=== PATIENT | female | born 1995 | race Caucasian/White ===

== ENCOUNTER 2017-10-23 16:46 | Emergency (ER) | payer BC ==
[2017-10-23 17:19] VITALS: TEMP 97.1
[2017-10-23] MEDS ORDERED: predniSONE 50 MG TAB PO STA (17:45)
[2017-10-23] MEDS ORDERED: IPRATROPIUM-ALBUTEROL 3 ML NEB INHALATION STA (17:45)
--- NOTE | 2017-10-23 17:48 | ED ---
SOB HPI - General Chief Complaint: Shortness of Breath Stated Complaint: Diff Breathing, Asthma Issues Time Seen by Provider: 10/23/17 17:40 Source: patient Mode of arrival: ambulatory Limitations: no limitations - History of Present Illness Initial Comments: 22-year-old male patient with past medical history significant for asthma presents to the emergency department today for complaints of increased shortness of breath and asthma issues. She states that over the last 3-4 days she has had an increase in her asthma symptoms. States she has been doing her breathing treatments at home which are albuterol, states that he does in be helping much. She states that she did 2 treatments before she left home today, went to work, and started having trouble at work so she presented here for further evaluation. She says her symptoms started with upper respiratory symptoms including nasal congestion, sore throat, and cough, states that these symptoms are struck to her asthma to get worse. She states that she recently moved to the area and has not yet established with a physician in order to get her maintenance asthma medications. Patient denies any recent rash, chest pain , abdominal pain, nausea, vomiting, diarrhea, constipation, back pain, numbness , tingling, dizziness, weakness, hematuria, dysuria, urinary urgency, urinary frequency, headache, visual changes, or any other complaints. - Related Data Previous Rx's Medication Instructions Recorded Albuterol Sulfate [Proair Hfa] 1 - 2 puff INHALATION Q6HR PRN #1 10/23/17 inhaler Ipratropium-Albuterol Nebulize 3 ml INHALATION Q4H PRN #30 neb 10/23/17 [Duoneb 0.5 mg-3 mg/3 ml Soln] predniSONE 50 mg PO DAILY #5 tab 10/23/17 Allergies Allergy/AdvReac Type Severity Reaction Status Date / Time latex Allergy Rash/Hives Verified 10/23/17 18:00 Sulfa (Sulfonamide Allergy Swelling Verified 10/23/17 18:00 Antibiotics) Review of Systems ROS Statement: Those systems with pertinent positive or pertinent negative responses have been documented in the HPI. ROS Other: All systems not noted in ROS Statement are negative. Past Medical History Past Medical History: Asthma History of Any Multi-Drug Resistant Organisms: None Reported Past Surgical History: No Surgical Hx Reported Past Psychological History: No Psychological Hx Reported Smoking Status: Never smoker Past Alcohol Use History: Occasional Past Drug Use History: None Reported General Exam Limitations: no limitations General appearance: alert, in no apparent distress, other (This is a well- developed, well-nourished adult female patient in no acute distress. Vital signs upon presentation are temperature 97.1F, pulse 93, respirations 22, blood pressure 170/92, pulse ox 100% on room air.) Eye exam: Present: normal appearance, PERRL, EOMI. Absent: scleral icterus, conjunctival injection, periorbital swelling ENT exam: Present: normal exam, normal oropharynx, mucous membranes moist, TM's normal bilaterally Neck exam: Present: normal inspection. Absent: tenderness, meningismus, lymphadenopathy Respiratory exam: Present: normal lung sounds bilaterally, other (appears mildly short of breath, takes deep breaths between sentences. No nasal flaring, pursed lip breathing, or accessory muscle use. ). Absent: respiratory distress , wheezes, rales, rhonchi, stridor Cardiovascular Exam: Present: regular rate, normal rhythm, normal heart sounds. Absent: systolic murmur, diastolic murmur, rubs, gallop, clicks GI/Abdominal exam: Present: soft, normal bowel sounds. Absent: distended, tenderness, guarding, rebound, rigid Neurological exam: Present: alert, oriented X3, CN II-XII intact Psychiatric exam: Present: normal affect, normal mood Skin exam: Present: warm, dry, intact, normal color. Absent: rash Course Vital Signs 10/23/17 10/23/17 10/23/17 17:17 18:00 18:07 Temperature 97.1 F L Pulse Rate 93 96 97 Respiratory 22 Rate Blood Pressure 170/92 O2 Sat by Pulse 100 Oximetry 10/23/17 18:20 Temperature Pulse Rate 82 Respiratory 18 Rate Blood Pressure 135/89 O2 Sat by Pulse 100 Oximetry Medical Decision Making - Medical Decision Making 22-year-old female patient presented to the emergency department today for increasing asthma symptoms. Physical examination did reveal that lung sounds are clear to auscultation with good air movement. Patient did feel mildly short of breath. Chest x-ray was clear for any acute process. Patient is feeling better after receiving 50 mg prednisone and a DuoNeb treatment here in the department. She'll be discharged home with a prescription for Pro Air, prednisone, and DuoNeb treatments. She is instructed to establish with a primary care physician for any further medications and for maintenance medications. She is instructed to return here immediately for any new, worsening, or concerning symptoms. She verbalizes understanding and agrees with this plan. - Radiology Data Radiology results: report reviewed, image reviewed Two-view x-ray of the chest shows the lungs are clear. The pleural spaces are negative. Cardiac silhouette is not enlarged. The mediastinal process of the lites are unremarkable. Skeletal structures are intact without focal findings. Soft tissues are unremarkable. Impression by Dr. Sandy Hewitt shows no acute process. Disposition Clinical Impression: Asthma exacerbation Disposition: HOME SELF-CARE Condition: Good Instructions: Asthma (ED) Additional Instructions: Take medications as directed. Follow-up with the primary care physician or mortgage servicing specialist as soon as possible. Return here immediately for any new, worsening, or concerning symptoms. Prescriptions: Albuterol Sulfate [Proair Hfa] 1 - 2 puff INHALATION Q6HR PRN #1 inhaler PRN Reason: Wheezing/Shortness of Breath Ipratropium-Albuterol Nebulize [Duoneb 0.5 mg-3 mg/3 ml Soln] 3 ml INHALATION Q4H PRN #30 neb PRN Reason: Wheezing predniSONE 50 mg PO DAILY #5 tab Referrals: None,Stated [Primary Care Provider] - 1-2 days Time of Disposition: 18:57
[2017-10-23 18:20] VITALS: BP 135/89; PULSE 82; RESP 18
--- NOTE | 2017-10-23 18:44 | XR ---
EXAMINATION: XR chest 2V DATE AND TIME: 10/23/2017 6:15 PM ORDERING PROVIDER: Christiane Rothman CLINICAL INDICATION: Pain TECHNIQUE: PA and lateral COMPARISON: None. DESCRIPTION: The lungs are clear. The pleural spaces are negative. The cardiac silhouette is not enlarged. The mediastinal and pleural silhouettes are unremarkable. The skeletal structures are intact without focal findings. The soft tissues are unremarkable. IMPRESSION: NO ACUTE PROCESS.
== END 2017-10-23 19:12 | disposition home or self-care (01) ==
LOC: EC 16:46
DX: J45.901 Unspecified asthma with (acute) exacerbation (principal); Z88.2 Allergy status to sulfonamides; Z91.040 Latex allergy status
CPT/HCPCS: 71046; 94640; 99285

== ENCOUNTER 2018-01-17 20:27 | Emergency (ER) | payer BC, OTHER ==
[2018-01-17 20:44] VITALS: BP 123/70; PULSE 62; RESP 16; TEMP 98.1
--- NOTE | 2018-01-17 21:11 | ED ---
ENT HPI - General Chief complaint: ENT Stated complaint: facial injury-[facility] Time Seen by Provider: 01/17/18 20:46 Source: patient, RN notes reviewed Mode of arrival: ambulatory Limitations: no limitations - History of Present Illness Initial comments: This is a 22-year-old female who presents to the emergency department with chief complaint of work-related facial injury. Patient states that she works for [employer]. She states that at approximately 620 this evening she was hit in the lower lip by a metal part. She states that her tooth cut the inside and outside of her lower lip. Patient is most concerned because she had a root canal done 1 month ago and was told that her infection was so bad that the lower mandible bone is deteriorating. Patient states that immediately after she was hit in the face, she felt a pressure in her lower teeth and still continues to feel pressure. She denies any other injury or trauma. She does state that she went to [employer] [facility] prior to coming to the emergency department and they were not concerned and did no x-rays. Patient denies recent fevers or chills, chest pain or shortness of breath, abdominal pain, nausea or vomiting, dizziness or headache. - Related Data Home Medications Medication Instructions Recorded Confirmed No Known Home Medications [No 01/17/18 01/17/18 Known Home Medications] Allergies Allergy/AdvReac Type Severity Reaction Status Date / Time latex Allergy Rash/Hives Verified 01/17/18 20:44 Sulfa (Sulfonamide Allergy Swelling Verified 01/17/18 20:44 Antibiotics) Review of Systems ROS Statement: Those systems with pertinent positive or pertinent negative responses have been documented in the HPI. ROS Other: All systems not noted in ROS Statement are negative. Past Medical History Past Medical History: Asthma History of Any Multi-Drug Resistant Organisms: None Reported Past Surgical History: No Surgical Hx Reported Past Psychological History: No Psychological Hx Reported Smoking Status: Never smoker Past Alcohol Use History: Occasional Past Drug Use History: None Reported General Exam - General Exam Comments Initial Comments: General: Awake and alert, well-developed; in no apparent distress. HEENT: Head atraumatic, normocephalic. Pupils are equal, round and reactive to light. Extraocular movements intact. Oropharynx moist without erythema or exudate. Small, superficial 2 mm abrasion on left lower lip. Small superficial abrasion on the inside of left lower lip. No active bleeding. There is tenderness on palpation of the mid mandible. No ecchymosis or swelling noted. No dental pain or fractures. Neck: Supple. Normal ROM. Cardiovascular: Regular rate and rhythm. No murmurs, rubs or gallops. Chest symmetrical. Respiratory: Lungs clear to auscultation bilaterally. No wheezes, rales or rhonchi. Normal respiratory effort with no use of accessory muscles. Musculoskeletal: Normal ROM, no tenderness bilateral upper and lower extremities. Ambulating normally. Skin: [place], warm and dry without rashes or lesions. Neurological: Alert and oriented x3. CN II-XII grossly intact. Speech is fluent and answers are appropriate. No focal neuro deficits. Psychiatric: Normal mood and affect. No overt signs of depression or anxiety noted. Limitations: no limitations Course Vital Signs 01/17/18 20:41 Temperature 98.1 F Pulse Rate 62 Respiratory 16 Rate Blood Pressure 123/70 O2 Sat by Pulse 97 Oximetry Medical Decision Making - Medical Decision Making This is a 22-year-old female who presents to the emergency department with chief complaint of work-related facial injury. Patient sustained a superficial abrasion to the left lower lip. Patient was not concerned about this, but was concerned about her mandible. Patient was hit in the face by a metal part at work and immediately felt a pressure in her lower teeth. She states that she recently had a root canal done and was told that her bone is deteriorating. Patient is concerned for further damage to her bone. There is mild tenderness on palpation of the mid-mandible. X-ray of the mandible was obtained and revealed no acute abnormalities. Patient's vital signs have been stable and she is in no acute distress. She will be discharged home at this time. - Radiology Data Radiology results: report reviewed X-ray mandible impression: No radiographic evidence for mandibular fracture. Disposition Clinical Impression: Lip abrasion, Facial contusion Disposition: HOME SELF-CARE Condition: Good Instructions: Abrasion (ED), Facial Contusion (ED) Additional Instructions: Please follow-up with your dentist if you continue to have pain and pressure in your teeth. Please follow up with primary care provider within 1-2 days. Return to emergency department if symptoms should worsen or any concerns arise. Is patient prescribed a controlled substance at d/c from ED?: No Referrals: Kimani Turcios MD [Primary Care Provider] - 1-2 days Time of Disposition: 21:49
--- NOTE | 2018-01-17 21:43 | XR ---
EXAMINATION TYPE: XR mandible complete DATE OF EXAM: 01/17/2018 COMPARISON: NONE HISTORY: Facial injury and subsequent pain. TECHNIQUE: 5 views of the mandible were obtained. FINDINGS: Mandibular condyles are located within the mandibular fossa. There is no evidence of zygoma tic arch or mandibular fracture. Visualized paranasal sinuses are well aerated. Visualized mastoid ai r cells are also well aerated. Few dental fillings are incidentally seen. Nasal septum is midline. Or bits appear symmetric. IMPRESSION: No radiographic evidence for mandibular fracture.
== END 2018-01-17 22:00 | disposition home or self-care (01) ==
LOC: EC 20:27
DX: S00.83XA Contusion of other part of head, initial encounter (principal); S00.511A Abrasion of lip, initial encounter; Z91.040 Latex allergy status; Z88.2 Allergy status to sulfonamides; W22.8XXA Striking against or struck by other objects, initial encounter; Y99.0 Civilian activity done for income or pay
CPT/HCPCS: 70110; 99283

== ENCOUNTER 2018-04-22 05:58 | Day surgery (SDC) | payer BC ==
--- NOTE | 2018-04-19 07:23 | P.HPOB ---
History of Present Illness H&P Date: 04/19/18 Chief Complaint: Pelvic pain and malpositioned IUD strings This patient is a pleasant 22-year-old 1 para 1 female who presented to me with complaints of cervical pain and vaginal discharge. Patient had a Mirena IUD placed in October by another physician states that she's been having discomfort since that time. Examination the office showed the IUD strings to be embedded in the left lateral cervix, however the ultrasound did show the body of the IUD to be intrauterine. Discussed options with the patient including leaving IUD until she requested removal versus outright removal and sent she is having discomfort from the cervical area she is requested removal. Since the IUD strings appear to be embedded in the cervix I feel this a fist to remove this in the operating room due to concern for bleeding. Review of Systems Constitutional: Denies chills, Denies fever Genitourinary: Reports as per HPI, Reports pelvic pain Menstruation: Reports cycle variable Past Medical History Past Medical History: Asthma History of Any Multi-Drug Resistant Organisms: None Reported Past Surgical History: No Surgical Hx Reported Past Anesthesia/Blood Transfusion Reactions: No Reported Reaction Past Psychological History: No Psychological Hx Reported Smoking Status: Never smoker Past Alcohol Use History: Occasional Past Drug Use History: None Reported Medications and Allergies Home Medications Medication Instructions Recorded Confirmed Type No Known Home Medications 01/17/18 01/17/18 History Allergies Allergy/AdvReac Type Severity Reaction Status Date / Time latex Allergy Rash/Hives Verified 01/17/18 20:44 Sulfa (Sulfonamide Allergy Swelling Verified 01/17/18 20:44 Antibiotics) Exam - OBG Physical Exam Abdomen: bowel sounds normal, no diffuse tenderness, no bruit present, no guarding noted, no hepatomegaly, no splenomegaly, no mass Vulva: both: normal Vagina: normal moisture, no discharge Cervix: Speculum exam shows green strings emanating from the 3 o'clock position of the lateral cervix. Uterus: normal size Results Ultrasound shows the IUD appears to be intrauterine. Assessment and Plan Assessment: This is a pleasant 22-year-old 1 para 1 female with complaints of pelvic pain and exam consistent with malpositioned IUD strings. Plan is hysteroscopy and removal of IUD. Patient understands this surgery and risks including risk of infection, bleeding. All the patient's questions are answered and a written consent is obtained. (1) Malpositioned intrauterine device (IUD) Status: Acute Code(s): T83.32XA - DISPLACEMENT OF INTRAUTERINE CONTRACEPTIVE DEVICE, INIT SNOMED Code(s): 86074176776466297
[2018-04-19 09:59] VITALS: BMI 28.5
[~2018-04-22 05:58] MED LIST: DEXAMETHASONE SOD PHOSPHATE 10 MG/ML 1 ML VIAL IV ONE; HYDROmorphone 0.5 MG/0.5 ML SYRINGE IVP PRN; LACTATED RINGERS 1,000 ML IV SCH; LIDOCAINE 1% 20 ML VIAL (10MG/ML) FOR IV START INTRADERMA PRN; MIDAZOLAM 2 MG/2 ML VIAL IV PRN; ONDANSETRON 4 MG/2 ML VIAL IVP ONE; Pre Op ABX Message 1 EACH MISC MISCELLANE ONE; SCOPOLAMINE 1.5MG/72HR PATCH TRANSDERM ONE
[2018-04-22 06:23] VITALS: TEMP 97.4
[2018-04-22] MEDS ORDERED: MIDAZOLAM 2 MG/2 ML VIAL ONE (07:21)
[2018-04-22] MEDS ORDERED: PROPOFOL 10 MG/ML 20 ML VIAL IV ONE (07:21)
[2018-04-22] MEDS ORDERED: fentaNYL (PF) 50 MCG/ML 2 ML AMP ONE (07:21)
[2018-04-22] MEDS ORDERED: LIDOCAINE 1% INJ 10MG/ML (20 ML MDV) ONE (07:21)
--- NOTE | 2018-04-22 07:47 | P.OP ---
Date of Procedure: 04/22/18 Preoperative Diagnosis: Pelvic pain with malpositioned IUD Postoperative Diagnosis: Same Procedure(s) Performed: Hysteroscopy and IUD removal Anesthesia: MAC, other (IV sedation) Surgeon: Nestor Mcknight Estimated Blood Loss (ml): 5 Urine output (ml): 10 Pathology: none sent Condition: stable Disposition: PACU Indications for Procedure: Please see dictated H&P for intimate details of this patient's admission. Brief summary this is a pleasant 22-year-old female who presented to me with complaints of cervical pain status post IUD insertion in October. Examination the office showed the IUD strings to be protruding from the lateral portion of the left cervix at about 3:00. Ultrasound confirmed IUD was in the uterus. Patient's having discomfort from the IUD strings embedded in the cervix therefore requested removal. Patient I discussed the surgery and risks including risks of infection and bleeding. All the patient's questions are answered written consent is obtained. Operative Findings: Patient had a Mirena IUD intrauterine with the strings embedded in the cervix at 3:00 Description of Procedure: This patient is taken to the operating room where she is laid in the supine position. She subsequently undergoes IV sedation for adequate level of anesthesia. With an adequate level of anesthesia placed in the dorsal lithotomy position. His vaginal perineal prep and drape. At this time the bladder is drained for 10 mL of clear urine. A weighted speculum was placed in the posterior vagina. The anterior lip of the cervix is gravid and Allis clamp. Inspection of the cervix shows IUD strings protruding through the cervix at about 3:00. Cervix is gently dilated to allow the hysteroscope into the endocervical canal. Using saline solution hysteroscopy is performed and the IUD is visualized and the strings are visualized laterally. With this done , the hysteroscope was removed. Using a hemostat I a slide the IUD strings back through the cervix and then grasped the IUD and remove it. The IUD is removed intact. There is minimal bleeding. Procedure at this time is ended. All counts are correct 3. There are no complications. Patient is awakened from anesthesia and taken to the recovery room in satisfactory condition.
[2018-04-22 08:31] VITALS: BP 95/57; PULSE 79; RESP 18
== END 2018-04-22 08:52 | disposition home or self-care (01) ==
LOC: OR 05:58
PROVIDERS: ATTEND Obstetrics & Gynecology
DX: T83.32XA Displacement of intrauterine contraceptive device, initial encounter (principal); J45.909 Unspecified asthma, uncomplicated; K21.9 Gastro-esophageal reflux disease without esophagitis; Z79.51 Long term (current) use of inhaled steroids; Z88.2 Allergy status to sulfonamides; Z91.040 Latex allergy status
CPT/HCPCS: 81025; 58562; J2250; J1100; J2405; J2001; J3010; J2704

== ENCOUNTER 2018-06-10 20:09 | Emergency (ER) | payer BC ==
[2018-06-10 20:42] VITALS: BP 138/89; PULSE 79; RESP 20; TEMP 98.1
[2018-06-10] MEDS ORDERED: DEXAMETHASONE SOD PHOSPHATE 10 MG/ML 1 ML VIAL IM STA (20:56)
--- NOTE | 2018-06-10 21:09 | ED ---
General Adult HPI - General Chief complaint: Skin/Abscess/Foreign Body Stated complaint: poss med reaction on legs Time Seen by Provider: 06/10/18 20:50 Source: patient, RN notes reviewed, old records reviewed Mode of arrival: ambulatory Limitations: no limitations - History of Present Illness Initial comments: 23-year-old female presenting for itchy rash to bilateral lower extremities. Patient is currently undergoing ALLERGY desensitization with weekly injectables. She states her symptoms to the injections. She is on her fourth week. She denies dyspnea. Denies tongue swelling or lip swelling. No cough. No vomiting. No other exposure noted. - Related Data Home Medications Medication Instructions Recorded Confirmed Levocetirizine Dihydrochloride 5 mg PO DAILY 04/19/18 06/10/18 [Xyzal] Triamcinolone Acetonide [Nasacort] 2 spray EA NOSTRIL DAILY 04/19/18 06/10/18 Albuterol Inhaler [Ventolin Hfa 1 - 2 puff INHALATION RT-Q6H PRN 06/10/18 Inhaler] diphenhydrAMINE [Benadryl] 25 mg PO DAILY PRN 06/10/18 06/10/18 Previous Rx's Medication Instructions Recorded methylPREDNISolone Dose Pack 4 mg PO DIRECTED #21 package 06/10/18 [Medrol Dose Pack] Allergies Allergy/AdvReac Type Severity Reaction Status Date / Time latex Allergy Rash/Hives Verified 06/10/18 21:15 Sulfa (Sulfonamide Allergy Swelling Verified 06/10/18 21:15 Antibiotics) Review of Systems ROS Statement: Those systems with pertinent positive or pertinent negative responses have been documented in the HPI. ROS Other: All systems not noted in ROS Statement are negative. Past Medical History Past Medical History: Asthma History of Any Multi-Drug Resistant Organisms: None Reported Past Surgical History: No Surgical Hx Reported Past Anesthesia/Blood Transfusion Reactions: No Reported Reaction Past Psychological History: No Psychological Hx Reported Smoking Status: Never smoker Past Alcohol Use History: None Reported Past Drug Use History: None Reported - Past Family History Mother Family Medical History: No Reported History General Exam Limitations: no limitations General appearance: alert, in no apparent distress Head exam: Present: atraumatic, normocephalic Eye exam: Present: normal appearance, PERRL ENT exam: Present: normal exam Neck exam: Present: normal inspection. Absent: tenderness, meningismus Respiratory exam: Present: normal lung sounds bilaterally. Absent: respiratory distress, wheezes, stridor Cardiovascular Exam: Present: regular rate, normal rhythm GI/Abdominal exam: Present: soft. Absent: distended, tenderness Neurological exam: Present: alert, oriented X3 Psychiatric exam: Present: normal affect, normal mood Skin exam: Present: warm, dry, urticaria, other (Mild erythema and excoriations to her legs, several small areas of urticaria.) Course Vital Signs 06/10/18 20:39 Temperature 98.1 F Pulse Rate 79 Respiratory 20 Rate Blood Pressure 138/89 O2 Sat by Pulse 100 Oximetry Disposition Clinical Impression: Allergic reaction to drug Disposition: HOME SELF-CARE Condition: Good Instructions: Urticaria (ED) Prescriptions: methylPREDNISolone Dose Pack [Medrol Dose Pack] 4 mg PO DIRECTED #21 package Is patient prescribed a controlled substance at d/c from ED?: No Referrals: Kimani Turcios MD [Primary Care Provider] - 1-2 days Time of Disposition: 21:09
== END 2018-06-10 21:17 | disposition home or self-care (01) ==
LOC: EC 20:09
DX: L50.0 Allergic urticaria (principal); T50.905A Adverse effect of unspecified drugs, medicaments and biological substances, initial encounter; Z88.2 Allergy status to sulfonamides; Z91.040 Latex allergy status; Z79.899 Other long term (current) drug therapy
CPT/HCPCS: 99283; 96372; J1100

== ENCOUNTER → 2018-10-15 | Outpatient (CLI) | payer BC ==
--- NOTE | 2018-10-15 11:00 | US ---
EXAMINATION TYPE: US pelvis complete transvag DATE OF EXAM: 10/15/2018 COMPARISON: NONE CLINICAL HISTORY: R10.2 Pelvic Pain. RLQ pain TECHNIQUE: TA/TV. Date of LMP: 10/10/2018 EXAM MEASUREMENTS: Uterus: 8.0 x 4.2 x 3.4 cm Endometrial Stripe: 0.3 cm Right Ovary: 3.0 x 2.8 x 2.8 cm Left Ovary: 1.9 x 1.3 x 1.3 cm 1. Uterus: Anteverted wnl 2. Endometrium: wnl 3. Right Ovary: 3.5cm simple appearing cyst 4. Left Ovary: wnl 5. Bilateral Adnexa: wnl 6. Posterior cul-de-sac: wnl Heterogeneous anteverted uterus is seen. Endometrial stripe does not appear suspiciously thickened. N o free fluid is seen in pelvis. Occupying majority of right ovary there is oval 3.6 x 2.2 x 2.7 cm somewhat poorly visualized anechoi c lesion felt to reflect simple cyst. Left ovary is smaller in size. IMPRESSION: There is suboptimal evaluation of 3.6 cm oval anechoic lesion right ovary favoring simple small ovarian cyst. Consider ultrasound surveillance in 6-8 weeks' time or pelvic MRI to better eval uate and characterize.
== END | disposition home or self-care (01) ==
LOC: RADUSWWP 09:20
PROVIDERS: ATTEND Pediatrics
DX: N83.8 Other noninflammatory disorders of ovary, fallopian tube and broad ligament (principal)
CPT/HCPCS: 76830; 76856

== ENCOUNTER → 2019-07-03 | Outpatient (CLI) | payer BC ==
--- NOTE | 2019-07-03 11:39 | XR ---
EXAMINATION TYPE: XR chest 2V DATE OF EXAM: 07/03/2019 COMPARISON: 10/23/2017 INDICATION: R07.9 TECHNIQUE: Frontal and lateral views of the chest are obtained. FINDINGS: The heart size is normal. The pulmonary vasculature is normal. The lungs are clear. IMPRESSION: 1. No acute pulmonary process.
== END ==
LOC: RADXRMAIN 10:30
PROVIDERS: ATTEND Pediatrics
DX: R07.9 Chest pain, unspecified (principal)
CPT/HCPCS: 71046

== ENCOUNTER 2020-04-10 10:50 | Emergency (ER) | payer BC ==
[2020-04-10 10:58] VITALS: RESP 18; TEMP 98.1
[2020-04-10] MEDS ORDERED: SODIUM CHLORIDE 0.9% 1,000 ML IV STA ×2 (11:22)
[2020-04-10] MEDS ORDERED: KETOROLAC 30 MG/ML 1 ML VIAL IVP STA (11:22)
[2020-04-10] MEDS ORDERED: PANTOPRAZOLE 40 MG/10 ML VIAL IVP STA (11:22)
[2020-04-10] MEDS ORDERED: ONDANSETRON 4 MG/2 ML VIAL IVP STA (11:22)
--- NOTE | 2020-04-10 11:28 | ED ---
Abdominal Pain HPI - General Chief Complaint: Abdominal Pain Stated Complaint: abd pain Time Seen by Provider: 04/10/20 11:05 Source: patient, RN notes reviewed, old records reviewed Mode of arrival: ambulatory - History of Present Illness Initial Comments: Patient is a 24-year-old female who presents emergency room today with chief complaint of right-sided lower abdominal pain and cramping in nature for the past 4 days. She initially thought her pain was related to ovarian cyst. She states that she started to develop dysuria the past day. Patient states that she has concern for possible sexually transmitted infections, she is with a new sexual partner. She states that she's had no vomiting. She reports normal bowel movements. She denies any significant flank pain - Related Data Home Medications Medication Instructions Recorded Confirmed Levocetirizine Dihydrochloride 5 mg PO DAILY 04/19/18 04/10/20 [Xyzal] Triamcinolone Acetonide [Nasacort] 1 spray EA NOSTRIL DAILY 04/19/18 04/10/20 Acetaminophen Tab [Tylenol Tab] 500 mg PO Q6HR PRN 04/10/20 04/10/20 Amoxic-Pot Clav 875-125Mg 1 tab PO Q12HR 04/10/20 04/10/20 [Augmentin 875-125] Loryna 3/0.02mg 1 tab PO HS 04/10/20 04/10/20 Omeprazole 40 mg PO DAILY 04/10/20 04/10/20 Venlafaxine HCl [Effexor XR] 75 mg PO HS 04/10/20 04/10/20 Previous Rx's Medication Instructions Recorded Nitrofurantoin Monohyd/M-Cryst 100 mg PO Q12HR #14 cap 04/10/20 [Macrobid] Allergies Allergy/AdvReac Type Severity Reaction Status Date / Time dexamethasone Allergy Swelling Verified 04/10/20 10:59 latex Allergy Rash/Hives Verified 09/25/19 18:20 Sulfa (Sulfonamide Allergy Swelling Verified 09/25/19 18:20 Antibiotics) Review of Systems ROS Statement: Those systems with pertinent positive or pertinent negative responses have been documented in the HPI. ROS Other: All systems not noted in ROS Statement are negative. Past Medical History Past Medical History: Asthma History of Any Multi-Drug Resistant Organisms: None Reported Past Surgical History: No Surgical Hx Reported Past Anesthesia/Blood Transfusion Reactions: No Reported Reaction Past Psychological History: No Psychological Hx Reported Smoking Status: Never smoker Past Alcohol Use History: None Reported, Unable to Obtain, Occasional Past Drug Use History: None Reported - Past Family History Mother Family Medical History: No Reported History General Exam - General Exam Comments Initial Comments: 24 year old bebe, no distress. General appearance: alert, in no apparent distress Head exam: Present: atraumatic, normocephalic, normal inspection Eye exam: Present: normal appearance, PERRL, EOMI. Absent: scleral icterus, conjunctival injection, periorbital swelling ENT exam: Present: normal exam, mucous membranes moist Neck exam: Present: normal inspection. Absent: tenderness, meningismus, lymphadenopathy Respiratory exam: Present: normal lung sounds bilaterally. Absent: respiratory distress, wheezes, rales, rhonchi, stridor Cardiovascular Exam: Present: regular rate, normal rhythm, normal heart sounds. Absent: systolic murmur, diastolic murmur, rubs, gallop, clicks GI/Abdominal exam: Present: soft, normal bowel sounds. Absent: distended, tenderness, guarding, rebound, rigid External exam: Present: normal external exam Speculum exam: Present: vaginal discharge, vaginal bleeding By manual exam: Present: normal by manual exam Extremities exam: Present: normal inspection, full ROM, normal capillary refill. Absent: tenderness, pedal edema, joint swelling, calf tenderness Back exam: Present: normal inspection Neurological exam: Present: alert, oriented X3, CN II-XII intact Psychiatric exam: Present: normal affect, normal mood Skin exam: Present: warm, dry, intact, normal color. Absent: rash Course Vital Signs 04/10/20 04/10/20 10:56 14:25 Temperature 98.1 F 98.1 F Pulse Rate 72 77 Respiratory 18 18 Rate Blood Pressure 141/79 134/88 O2 Sat by Pulse 98 98 Oximetry Medical Decision Making - Medical Decision Making Patient is a 24 year old female presents to ED with pelvic pain. She states she has had dysuria. On pelvic exam patient has some discharge and bleeding. She starts her menstrual cycle next week. Patient has normal labs and normal UA. She does question of concern for STD with new sexual partner. Trichomonas test is negative. Discussed cramping and bleeding can be from starting menstrual cycle early and will treat for chlamydia and gonorrohea. Discussed return parameters and [employer] follow up. - Lab Data Result diagrams: 04/10/20 11:14 04/10/20 11:14 Lab Results 04/10/20 04/10/20 04/10/20 Range/Units 11:14 11:14 11:14 WBC 10.7 H (3.8-10.6) k/uL RBC 4.57 (3.80-5.40) m/uL Hgb 12.6 (11.4-16.0) gm/dL Hct 39.0 (34.0-46.0) % MCV 85.2 (80.0-100.0) fL MCH 27.6 (25.0-35.0) pg MCHC 32.4 (31.0-37.0) g/dL RDW 12.3 (11.5-15.5) % Plt Count 391 (150-450) k/uL Neutrophils % 53 % Lymphocytes % 35 % Monocytes % 7 % Eosinophils % 3 % Basophils % 1 % Neutrophils # 5.7 (1.3-7.7) k/uL Lymphocytes # 3.7 (1.0-4.8) k/uL Monocytes # 0.7 (0-1.0) k/uL Eosinophils # 0.3 (0-0.7) k/uL Basophils # 0.1 (0-0.2) k/uL PT 9.4 (9.0-12.0) sec INR 0.9 (<1.2) APTT 22.8 (22.0-30.0) sec Sodium (137-145) mmol/L Potassium (3.5-5.1) mmol/L Chloride (98-107) mmol/L Carbon Dioxide (22-30) mmol/L Anion Gap mmol/L BUN (7-17) mg/dL Creatinine (0.52-1.04) mg/dL Est GFR (CKD-EPI)AfAm (>60 ml/min/1.73 sqM) Est GFR (CKD-EPI)NonAf (>60 ml/min/1.73 sqM) Glucose (74-99) mg/dL Calcium (8.4-10.2) mg/dL Total Bilirubin (0.2-1.3) mg/dL AST (14-36) U/L ALT (4-34) U/L Alkaline Phosphatase (38-126) U/L Total Protein (6.3-8.2) g/dL Albumin (3.5-5.0) g/dL Amylase (30-110) U/L Lipase (23-300) U/L Urine Color Yellow Urine Appearance Cloudy H (Clear) Urine pH 8.0 (5.0-8.0) Ur Specific [place] 1.021 (1.001-1.035) Urine Protein Negative (Negative) Urine Glucose (UA) Negative (Negative) Urine Ketones Negative (Negative) Urine Blood Negative (Negative) Urine Nitrite Negative (Negative) Urine Bilirubin Negative (Negative) Urine Urobilinogen <2.0 (<2.0) mg/dL Ur Leukocyte Esterase Negative (Negative) Urine RBC 2 (0-5) /hpf Urine WBC 4 (0-5) /hpf Ur Squamous Epith Cells <1 (0-4) /hpf Amorphous Sediment Rare H (None) /hpf Urine Mucus Rare H (None) /hpf Urine HCG, Qual (Not Detectd) Trichomonas Ag (Rapid) (Negative) 04/10/20 04/10/20 04/10/20 Range/Units 11:14 11:14 12:30 WBC (3.8-10.6) k/uL RBC (3.80-5.40) m/uL Hgb (11.4-16.0) gm/dL Hct (34.0-46.0) % MCV (80.0-100.0) fL MCH (25.0-35.0) pg MCHC (31.0-37.0) g/dL RDW (11.5-15.5) % Plt Count (150-450) k/uL Neutrophils % % Lymphocytes % % Monocytes % % Eosinophils % % Basophils % % Neutrophils # (1.3-7.7) k/uL Lymphocytes # (1.0-4.8) k/uL Monocytes # (0-1.0) k/uL Eosinophils # (0-0.7) k/uL Basophils # (0-0.2) k/uL PT (9.0-12.0) sec INR (<1.2) APTT (22.0-30.0) sec Sodium 138 (137-145) mmol/L Potassium 4.4 (3.5-5.1) mmol/L Chloride 103 (98-107) mmol/L Carbon Dioxide 26 (22-30) mmol/L Anion Gap 9 mmol/L BUN 18 H (7-17) mg/dL Creatinine 0.95 (0.52-1.04) mg/dL Est GFR (CKD-EPI)AfAm >90 (>60 ml/min/1.73 sqM) Est GFR (CKD-EPI)NonAf 83 (>60 ml/min/1.73 sqM) Glucose 97 (74-99) mg/dL Calcium 9.9 (8.4-10.2) mg/dL Total Bilirubin 0.2 (0.2-1.3) mg/dL AST 20 (14-36) U/L ALT 21 (4-34) U/L Alkaline Phosphatase 86 (38-126) U/L Total Protein 7.5 (6.3-8.2) g/dL Albumin 4.4 (3.5-5.0) g/dL Amylase 41 (30-110) U/L Lipase 82 (23-300) U/L Urine Color Urine Appearance (Clear) Urine pH (5.0-8.0) Ur Specific [place] (1.001-1.035) Urine Protein (Negative) Urine Glucose (UA) (Negative) Urine Ketones (Negative) Urine Blood (Negative) Urine Nitrite (Negative) Urine Bilirubin (Negative) Urine Urobilinogen (<2.0) mg/dL Ur Leukocyte Esterase (Negative) Urine RBC (0-5) /hpf Urine WBC (0-5) /hpf Ur Squamous Epith Cells (0-4) /hpf Amorphous Sediment (None) /hpf Urine Mucus (None) /hpf Urine HCG, Qual Not Detected (Not Detectd) Trichomonas Ag (Rapid) Negative (Negative) - Radiology Data Radiology results: report reviewed Ultrasound shows a failure to visualize left ovary but otherwise unremarkable exam. Disposition Clinical Impression: Dysuria, Pelvic cramping Disposition: HOME SELF-CARE Condition: Good Instructions (If sedation given, give patient instructions): Pelvic Pain in Women (ED) Additional Instructions: Patient is a take the medication as prescribed. Follow-up with your primary care physician. Return to the emergency department if any alarming signs or symptoms occur. Prescriptions: Nitrofurantoin Monohyd/M-Cryst [Macrobid] 100 mg PO Q12HR #14 cap Is patient prescribed a controlled substance at d/c from ED?: No Referrals: Kimani Turcios MD [Primary Care Provider] - 1-2 days Time of Disposition: 13:50
[2020-04-10 11:43] LABS: Basophils # (A) 0.1 k/uL (0-0.2); Basophils % (A) 1 %; Eosinophils # (A) 0.3 k/uL (0-0.7); Eosinophils % (A) 3 %; HGB 12.6 gm/dL (11.4-16.0); Lymphocytes # (A) 3.7 k/uL (1.0-4.8); Lymphocytes % (A) 35 %; MCH 27.6 pg (25.0-35.0); MCHC 32.4 g/dL (31.0-37.0); MCV 85.2 fL (80.0-100.0); Mean Platelet Volume 6.4; Monocytes # (A) 0.7 k/uL (0-1.0); Monocytes % (A) 7 %; Neutrophils # (A) 5.7 k/uL (1.3-7.7); Neutrophils % (A) 53 %; Platelet Count 391 k/uL (150-450); RBC 4.57 m/uL (3.80-5.40); RDW 12.3 % (11.5-15.5); WBC 10.7 k/uL (3.8-10.6)
[2020-04-10 11:48] LABS: Amorphous Sediment,Urine Rare /hpf; Appearance,Urine Cloudy (Clear); Bilirubin,Urine Negative (Negative); Blood,Urine Negative (Negative); Color,Urine Yellow; Glucose,Urine (UA) Negative (Negative); Ketones,Urine Negative (Negative); Leukocyte Esterase,Urine Negative (Negative); Mucus,Urine Rare /hpf; Nitrite,Urine Negative (Negative); Protein,Urine Negative (Negative); RBC,Urine 2 /hpf (0-5); Specific Gravity,Urine 1.021 (1.001-1.035); Squamous Epithelial Cell,Urine <1 /hpf (0-4); Urobilinogen,Urine <2.0 mg/dL (<2.0); WBC,Urine 4 /hpf (0-5)
[2020-04-10 11:52] LABS: ALT 21 U/L (4-34); AST 20 U/L (14-36); African American GFR (CKD) >90 (>60 ml/min/1.73 sqM); Albumin 4.4 g/dL (3.5-5.0); Alkaline Phosphatase 86 U/L (38-126); Amylase 41 U/L (30-110); Anion Gap 9 mmol/L; Blood Urea Nitrogen 18 mg/dL (7-17); Calcium 9.9 mg/dL (8.4-10.2); Carbon Dioxide 26 mmol/L (22-30); Chloride 103 mmol/L (98-107); Glucose 97 mg/dL (74-99); Non-African American GFR(CKD) 83 (>60 ml/min/1.73 sqM); Potassium 4.4 mmol/L (3.5-5.1); Sodium 138 mmol/L (137-145); Total Bilirubin 0.2 mg/dL (0.2-1.3); Total Protein 7.5 g/dL (6.3-8.2)
[2020-04-10 12:05] LABS: INR 0.9 (<1.2); Prothrombin Time 9.4 sec (9.0-12.0)
[2020-04-10 12:06] LABS: Partial Thromboplastin Time 22.8 sec (22.0-30.0)
--- NOTE | 2020-04-10 13:30 | US ---
EXAMINATION TYPE: US transvaginal DATE OF EXAM: 04/10/2020 COMPARISON: Previous study dated 09/25/2019. CLINICAL HISTORY: adnexal tenderness. RLQ pain TECHNIQUE: Transvaginal (TV). EXAM MEASUREMENTS: Uterus: 7.1 x 3.1 x 3.5 cm Endometrial Stripe: .2 cm Right Ovary: 2.4 x 1.7 x 1.3 cm 1. Uterus: Anteverted wnl 2. Endometrium: wnl 3. Right Ovary: wnl 4. Left Ovary: Obscured by overlying bowel gas Spectral, color and waveform doppler imaging shows good arterial and venous flow within the right o vary; there is no evidence for ovarian torsion. 5. Bilateral Adnexa: wnl 6. Posterior cul-de-sac: wnl IMPRESSION: FAILURE TO VISUALIZE A LEFT OVARY BUT OTHERWISE UNREMARKABLE EXAMINATION.
[2020-04-10] MEDS ORDERED: cefTRIAXone 250 MG VIAL IM STA (13:36)
[2020-04-10] MEDS ORDERED: AZITHROMYCIN 500 MG TAB PO STA (13:37)
[2020-04-10 14:26] VITALS: BP 134/88; PULSE 77
== END 2020-04-10 14:26 | disposition home or self-care (01) ==
LOC: EC 10:50
DX: R30.0 Dysuria (principal); R10.2 Pelvic and perineal pain; Z88.8 Allergy status to other drugs, medicaments and biological substances; Z91.040 Latex allergy status; Z88.2 Allergy status to sulfonamides
CPT/HCPCS: 36415; 80053; 82150; 83690; 85025; 85610; 85730; 81001; 81025; 87808; 87491; 87591; 87070; 76830; 99284; 96374; 96375 ×2; 96372; 96361 ×2; J2405; J0696; J1885; C9113

== ENCOUNTER 2020-04-14 16:09 | Emergency (ER) | payer BC ==
[2020-04-14 17:03] LABS: Basophils # (A) 0.1 k/uL (0-0.2); Basophils % (A) 1 %; Eosinophils # (A) 0.4 k/uL (0-0.7); Eosinophils % (A) 3 %; HCT 37.6 % (34.0-46.0); HGB 12.3 gm/dL (11.4-16.0); Lymphocytes # (A) 2.5 k/uL (1.0-4.8); Lymphocytes % (A) 21 %; MCHC 32.7 g/dL (31.0-37.0); MCV 85.6 fL (80.0-100.0); Mean Platelet Volume 6.6; Monocytes # (A) 0.5 k/uL (0-1.0); Monocytes % (A) 4 %; Neutrophils # (A) 8.1 k/uL (1.3-7.7); Neutrophils % (A) 69 %; Platelet Count 315 k/uL (150-450); RBC 4.39 m/uL (3.80-5.40); RDW 12.1 % (11.5-15.5); WBC 11.8 k/uL (3.8-10.6)
[2020-04-14] MEDS ORDERED: ACETAMINOPHEN TAB 325 MG TAB PO STA (17:06)
[2020-04-14] MEDS ORDERED: ONDANSETRON 4 MG/2 ML VIAL IVP STA (17:06)
[2020-04-14 17:12] LABS: Appearance,Urine Cloudy (Clear); Bilirubin,Urine Negative (Negative); Blood,Urine Trace (Negative); Calcium Oxalate Crystals,Urine Moderate /hpf; Color,Urine Yellow; Glucose,Urine (UA) Negative (Negative); Ketones,Urine Negative (Negative); Leukocyte Esterase,Urine Large (Negative); Mucus,Urine Many /hpf; Nitrite,Urine Negative (Negative); PH, Urine 5.5 (5.0-8.0); Protein,Urine 1+ (Negative); RBC,Urine 26 /hpf (0-5); Specific Gravity,Urine 1.029 (1.001-1.035); Squamous Epithelial Cell,Urine 3 /hpf (0-4); Urobilinogen,Urine <2.0 mg/dL (<2.0); WBC,Urine 79 /hpf (0-5)
[2020-04-14 17:13] LABS: ALT 17 U/L (4-34); AST 21 U/L (14-36); African American GFR (CKD) >90 (>60 ml/min/1.73 sqM); Albumin 4.2 g/dL (3.5-5.0); Alkaline Phosphatase 89 U/L (38-126); Anion Gap 10 mmol/L; Blood Urea Nitrogen 16 mg/dL (7-17); Calcium 9.3 mg/dL (8.4-10.2); Carbon Dioxide 22 mmol/L (22-30); Chloride 102 mmol/L (98-107); Glucose 91 mg/dL (74-99); Non-African American GFR(CKD) >90 (>60 ml/min/1.73 sqM); Potassium 4.3 mmol/L (3.5-5.1); Sodium 134 mmol/L (137-145); Total Bilirubin 0.3 mg/dL (0.2-1.3); Total Protein 7.6 g/dL (6.3-8.2)
--- NOTE | 2020-04-14 18:19 | US ---
EXAMINATION TYPE: US renals and bladder DATE OF EXAM: 04/14/2020 COMPARISON: NONE CLINICAL HISTORY: pain. Pain x 6 days. EXAM MEASUREMENTS: Right Kidney: 11.3 x 4.4 x 4.0 cm Left Kidney: 10.7 x 5.2 x 5.6 cm *Limited exam due to gas and rib shadow. Right Kidney: No hydronephrosis or masses seen Left Kidney: No hydronephrosis or masses seen Bladder: Not fully distended. Unable to fully evaluate. Appears anechoic. Bilateral Jets seen: No Kidneys show normal cortical medullary differentiation. IMPRESSION: Normal renal ultrasound
--- NOTE | 2020-04-14 18:23 | US ---
EXAMINATION TYPE: US transvaginal DATE OF EXAM: 04/14/2020 COMPARISON: US 04/10/2020 4 days prior CLINICAL HISTORY: pain. Pain x 6 days. Hx ovarian cyst. Hx IUD removed. . TECHNIQUE: Transvaginal (TV). Date of LMP: 03/20/2020 EXAM MEASUREMENTS: Uterus: 7.7 x 4.4 x 3.2 cm Endometrial Stripe: 0.27 cm Right Ovary: 2.7 x 1.4 x 1.7 cm Left Ovary: 2.4 x 1.7 x 1.0 cm 1. Uterus: Anteverted Appears to be wnl. 2. Endometrium: Measures 0.27 cm. 3. Right Ovary: Subcentimeter anechoic areas seen. 4. Left Ovary: Subcentimeter anechoic areas seen. Spectral, color and waveform doppler imaging shows arterial and venous flow within the ovaries. 5. Bilateral Adnexa: Appear wnl. 6. Posterior cul-de-sac: Appears wnl. IMPRESSION: No significant interval change. Stable normal exam.
[2020-04-14] MEDS ORDERED: cefTRIAXone IN SWFI 1,000 MG/10 ML SYRINGE IVP STA (18:37)
[2020-04-14] MEDS ORDERED: CEPHALEXIN 500MG STARTER PACK 4 CAP BTL PO STA (18:59)
--- NOTE | 2020-04-14 19:00 | ED ---
General Adult HPI - General Chief complaint: Back Pain/Injury Stated complaint: Pain lower back Time Seen by Provider: 04/14/20 16:23 Source: patient, RN notes reviewed, old records reviewed Mode of arrival: ambulatory Limitations: no limitations - History of Present Illness Initial comments: 24-year-old female patient has no history of asthma since the ED with chief complaint of right inguinal pain as well as right lower back/flank pain. Patient reports symptoms have been ongoing for last 6 days. She denies any fevers. She does report she is having some dysuria. Also frequency. She states that she has been on Macrobid for the last 6 days early but no improvement of her symptoms. She denies any other complaints. Systemic: Pt denies fatigue, fever/chills, rash. Pt denies weakness, night sweats, weight loss. Neuro: Pt denies headache, visual disturbances, syncope or pre-syncope. HEENT: Pt denies ocular discharge or irritation, otalgia, rhinorrhea, pharyngitis or notable lymphadenopathy. Cardiopulmonary: Pt denies chest pain, SOB, heart palpitations, dyspnea on exertion. Abdominal/GI: Pt denies abdominal pain, n/v/d. : Pt denies dysuria, burning w/ urination, frequency/urgency. Denies new onset urinary or bowel incontinence. MSK: Pt denies loss of strength or function in extremities. Neuro: Pt denies new onset weakness, paresthesias. - Related Data Home Medications Medication Instructions Recorded Confirmed Levocetirizine Dihydrochloride 5 mg PO DAILY 04/19/18 04/14/20 [Xyzal] Triamcinolone Acetonide [Nasacort] 1 spray EA NOSTRIL DAILY 04/19/18 04/14/20 Omeprazole 40 mg PO HS 04/10/20 04/14/20 Venlafaxine HCl [Effexor XR] 75 mg PO HS 04/10/20 04/14/20 Aspirin 325 mg PO ONCE PRN 04/14/20 04/14/20 Ethinyl Estradiol/Drospirenone 1 tab PO HS 04/14/20 04/14/20 [Jessica 28 Tablet] Previous Rx's Medication Instructions Recorded Nitrofurantoin Monohyd/M-Cryst 100 mg PO Q12HR #14 cap 04/10/20 [Macrobid] Cephalexin [Keflex] 500 mg PO Q6HR 10 Days #40 cap 04/14/20 Allergies Allergy/AdvReac Type Severity Reaction Status Date / Time dexamethasone Allergy Swelling Verified 04/14/20 18:37 latex Allergy Rash/Hives Verified 04/14/20 18:37 Sulfa (Sulfonamide Allergy Swelling Verified 04/14/20 18:37 Antibiotics) Review of Systems ROS Statement: Those systems with pertinent positive or pertinent negative responses have been documented in the HPI. ROS Other: All systems not noted in ROS Statement are negative. Past Medical History Past Medical History: Asthma History of Any Multi-Drug Resistant Organisms: None Reported Past Surgical History: No Surgical Hx Reported Past Anesthesia/Blood Transfusion Reactions: No Reported Reaction Past Psychological History: No Psychological Hx Reported Smoking Status: Never smoker Past Alcohol Use History: None Reported, Unable to Obtain, Occasional Past Drug Use History: None Reported - Past Family History Mother Family Medical History: No Reported History General Exam - General Exam Comments Initial Comments: Constitutional: NAD, AOX3, Pt has pleasant affect. HEENT: NC/AT, trachea midline, neck supple, no lymphadenopathy. Posterior pharynx non erythematous, without exudates. External ears appear normal, without discharge. Mucous membranes moist. Eyes PERRLA, EOM intact. There is no scleral icterus. No pallor noted. Cardiopulmonary: RRR, no murmurs, rubs or gallops, no JVD noted. Lungs CTAB in anterior and posterior willett. No peripheral edema. Abdominal exam: Abdomen soft and non-distended. Abdomen non-tender to palpation in all 4 quadrants. Bowel sounds active in LLQ. No hepatosplenomegaly. No ecchymosis. Right inguinal region mildly tender to palpation. Neuro: CN II-XII grossly intact. No nuchal rigidity. No raccon eyes, no packer sign, no hemotympanum. No cervical spinal tenderness. MSK: No CVA tenderness bilaterally. Full active ROM in upper and lower extremities, 5/5 stregnth. Limitations: no limitations Course Vital Signs 04/14/20 04/14/20 16:11 16:32 Temperature 98.6 F Pulse Rate 98 100 Respiratory 18 20 Rate Blood Pressure 140/78 143/86 O2 Sat by Pulse 100 97 Oximetry Medical Decision Making - Medical Decision Making 24 old female patient with the chief complaint of right lower back pain as well as right inguinal pain. Ongoing for the last 6 days. Patient has been on Macrobid without improvement. Also reports some urinary symptoms. The chance of urgency or any fevers. Patient vital signs are stable, afebrile. Physical exam did display some right inguinal tenderness. No CVA tenderness or abdominal tenderness. Patient states that there is no rash or no skin changes on her inguinal region is declining examination in that region. Laboratory investigations revealed mild leukocytosis. UA displays protein trace blood margins and Estrace 26 red blood cells 79 white blood cells. HCG is negative. Ultrasound reveals an bladder does not display any acute process noted. No hydronephrosis or masses seen. Ultrasound transvaginal did not display any change. No signs of torsion. Patient antibiotic will be changed to Keflex which will be prescribed 4 times a day. Patient reports that her symptoms have resolved after Tylenol and she no longer has any pain repeat exam displayed region to be nontender. She'll follow up with her primary care provider and urologist and return to ER if any worsening symptoms. Case discussed with Dr. Breaux. - Lab Data Result diagrams: 04/14/20 16:48 04/14/20 16:48 Lab Results 04/14/20 04/14/20 04/14/20 Range/Units 16:48 16:48 16:48 WBC 11.8 H (3.8-10.6) k/uL RBC 4.39 (3.80-5.40) m/uL Hgb 12.3 (11.4-16.0) gm/dL Hct 37.6 (34.0-46.0) % MCV 85.6 (80.0-100.0) fL MCH 28.0 (25.0-35.0) pg MCHC 32.7 (31.0-37.0) g/dL RDW 12.1 (11.5-15.5) % Plt Count 315 (150-450) k/uL Neutrophils % 69 % Lymphocytes % 21 % Monocytes % 4 % Eosinophils % 3 % Basophils % 1 % Neutrophils # 8.1 H (1.3-7.7) k/uL Lymphocytes # 2.5 (1.0-4.8) k/uL Monocytes # 0.5 (0-1.0) k/uL Eosinophils # 0.4 (0-0.7) k/uL Basophils # 0.1 (0-0.2) k/uL Sodium (137-145) mmol/L Potassium (3.5-5.1) mmol/L Chloride (98-107) mmol/L Carbon Dioxide (22-30) mmol/L Anion Gap mmol/L BUN (7-17) mg/dL Creatinine (0.52-1.04) mg/dL Est GFR (CKD-EPI)AfAm (>60 ml/min/1.73 sqM) Est GFR (CKD-EPI)NonAf (>60 ml/min/1.73 sqM) Glucose (74-99) mg/dL Calcium (8.4-10.2) mg/dL Total Bilirubin (0.2-1.3) mg/dL AST (14-36) U/L ALT (4-34) U/L Alkaline Phosphatase (38-126) U/L Total Protein (6.3-8.2) g/dL Albumin (3.5-5.0) g/dL Lipase (23-300) U/L Urine Color Yellow Urine Appearance Cloudy H (Clear) Urine pH 5.5 (5.0-8.0) Ur Specific [place] 1.029 (1.001-1.035) Urine Protein 1+ H (Negative) Urine Glucose (UA) Negative (Negative) Urine Ketones Negative (Negative) Urine Blood Trace H (Negative) Urine Nitrite Negative (Negative) Urine Bilirubin Negative (Negative) Urine Urobilinogen <2.0 (<2.0) mg/dL Ur Leukocyte Esterase Large H (Negative) Urine RBC 26 H (0-5) /hpf Urine WBC 79 H (0-5) /hpf Ur Squamous Epith Cells 3 (0-4) /hpf Calcium Oxalate Crystal Moderate H (None) /hpf Urine Mucus Many H (None) /hpf Urine HCG, Qual Not Detected (Not Detectd) 04/14/20 Range/Units 16:48 WBC (3.8-10.6) k/uL RBC (3.80-5.40) m/uL Hgb (11.4-16.0) gm/dL Hct (34.0-46.0) % MCV (80.0-100.0) fL MCH (25.0-35.0) pg MCHC (31.0-37.0) g/dL RDW (11.5-15.5) % Plt Count (150-450) k/uL Neutrophils % % Lymphocytes % % Monocytes % % Eosinophils % % Basophils % % Neutrophils # (1.3-7.7) k/uL Lymphocytes # (1.0-4.8) k/uL Monocytes # (0-1.0) k/uL Eosinophils # (0-0.7) k/uL Basophils # (0-0.2) k/uL Sodium 134 L (137-145) mmol/L Potassium 4.3 (3.5-5.1) mmol/L Chloride 102 (98-107) mmol/L Carbon Dioxide 22 (22-30) mmol/L Anion Gap 10 mmol/L BUN 16 (7-17) mg/dL Creatinine 0.74 (0.52-1.04) mg/dL Est GFR (CKD-EPI)AfAm >90 (>60 ml/min/1.73 sqM) Est GFR (CKD-EPI)NonAf >90 (>60 ml/min/1.73 sqM) Glucose 91 (74-99) mg/dL Calcium 9.3 (8.4-10.2) mg/dL Total Bilirubin 0.3 (0.2-1.3) mg/dL AST 21 (14-36) U/L ALT 17 (4-34) U/L Alkaline Phosphatase 89 (38-126) U/L Total Protein 7.6 (6.3-8.2) g/dL Albumin 4.2 (3.5-5.0) g/dL Lipase 82 (23-300) U/L Urine Color Urine Appearance (Clear) Urine pH (5.0-8.0) Ur Specific [place] (1.001-1.035) Urine Protein (Negative) Urine Glucose (UA) (Negative) Urine Ketones (Negative) Urine Blood (Negative) Urine Nitrite (Negative) Urine Bilirubin (Negative) Urine Urobilinogen (<2.0) mg/dL Ur Leukocyte Esterase (Negative) Urine RBC (0-5) /hpf Urine WBC (0-5) /hpf Ur Squamous Epith Cells (0-4) /hpf Calcium Oxalate Crystal (None) /hpf Urine Mucus (None) /hpf Urine HCG, Qual (Not Detectd) Disposition Clinical Impression: UTI (urinary tract infection), Flank pain Disposition: HOME SELF-CARE Condition: Stable Instructions (If sedation given, give patient instructions): Dysuria (ED), Urinary Tract Infection in Women (ED) Additional Instructions: Take antibiotics as directed. Follow up with PCP and urologist tomorrow. Return to ER for any worsening symptoms. Discontinue Macrobid. Prescriptions: Cephalexin [Keflex] 500 mg PO Q6HR 10 Days #40 cap Is patient prescribed a controlled substance at d/c from ED?: No Referrals: Kimani Turcios MD [Primary Care Provider] - 1-2 days Jeremi Presley MD [STAFF PHYSICIAN] - 1-2 days
[2020-04-14 19:08] VITALS: BP 118/73; PULSE 96; RESP 16; TEMP 98.7
== END 2020-04-14 19:10 | disposition home or self-care (01) ==
LOC: EC 16:09
DX: N39.0 Urinary tract infection, site not specified (principal); Z32.02 Encounter for pregnancy test, result negative; Z79.899 Other long term (current) drug therapy; Z88.8 Allergy status to other drugs, medicaments and biological substances; Z88.2 Allergy status to sulfonamides; Z91.040 Latex allergy status
CPT/HCPCS: 36415; 80053; 83690; 85025; 81001; 81025; 87086; 93975; 76830; 76770; 99284; 96374; 96375; J2405; J0696

== ENCOUNTER 2020-07-30 08:31 | Emergency (ER) | payer BC ==
[2020-07-30] MEDS ORDERED: ACETAMINOPHEN TAB 325 MG TAB PO STA (09:06)
[2020-07-30 09:21] LABS: Basophils # (A) 0.1 k/uL (0-0.2); Basophils % (A) 1 %; Eosinophils # (A) 0.3 k/uL (0-0.7); Eosinophils % (A) 3 %; HCT 40.3 % (34.0-46.0); HGB 13.8 gm/dL (11.4-16.0); Lymphocytes # (A) 3.3 k/uL (1.0-4.8); Lymphocytes % (A) 33 %; MCH 29.7 pg (25.0-35.0); MCHC 34.3 g/dL (31.0-37.0); MCV 86.5 fL (80.0-100.0); Mean Platelet Volume 6.3; Monocytes # (A) 0.4 k/uL (0-1.0); Monocytes % (A) 4 %; Neutrophils # (A) 5.7 k/uL (1.3-7.7); Neutrophils % (A) 58 %; Platelet Count 379 k/uL (150-450); RBC 4.66 m/uL (3.80-5.40); RDW 12.4 % (11.5-15.5); WBC 9.8 k/uL (3.8-10.6)
--- NOTE | 2020-07-30 09:28 | ED ---
Headache HPI - General Chief Complaint: Headache Stated Complaint: Chest Pain, Nausea, Light headed Time Seen by Provider: 07/30/20 08:48 Mode of arrival: ambulatory Limitations: no limitations - History of Present Illness Initial Comments: 25-year-old feel presented for multiple complaints. Patient states that this week beginning Sunday she's had increased fatigue. She states that she's had slight cough low-grade fever body aches and a slight headache. She states she did not presents only for the headache she states that is just accompanying the bodyaches. She denies neck stiffness photophobia. She states she does have some chest pains feels like she pulled a muscle from coughing but does increase with deep inspiration. Patient denies shortness of breath she denies leg swelling history DVT. Patient states that she does work at [employer] where they had a recent legionella outbreak, she states she has been concerned of that as well as covid 19. Patient on arrival appears well nontoxic in no acute distress. - Related Data Home Medications Medication Instructions Recorded Confirmed Levocetirizine Dihydrochloride 5 mg PO DAILY 04/19/18 07/30/20 [Xyzal] Triamcinolone Acetonide [Nasacort] 1 spray EA NOSTRIL DAILY 04/19/18 07/30/20 Omeprazole 40 mg PO HS 04/10/20 07/30/20 DULoxetine HCL [Cymbalta] 30 mg PO HS 07/30/20 07/30/20 Ferrous Sulfate [Feosol] 325 mg PO HS 07/30/20 07/30/20 Loryna 1 tab PO HS 07/30/20 07/30/20 Allergies Allergy/AdvReac Type Severity Reaction Status Date / Time dexamethasone Allergy Swelling Verified 07/30/20 09:11 latex Allergy Rash/Hives Verified 07/30/20 09:11 Sulfa (Sulfonamide Allergy Swelling Verified 07/30/20 09:11 Antibiotics) Review of Systems ROS Statement: Those systems with pertinent positive or pertinent negative responses have been documented in the HPI. ROS Other: All systems not noted in ROS Statement are negative. Past Medical History Past Medical History: Asthma History of Any Multi-Drug Resistant Organisms: None Reported Past Surgical History: No Surgical Hx Reported Past Anesthesia/Blood Transfusion Reactions: No Reported Reaction Past Psychological History: No Psychological Hx Reported Smoking Status: Never smoker Past Alcohol Use History: Occasional Past Drug Use History: Marijuana - Past Family History Mother Family Medical History: No Reported History General Exam - General Exam Comments Initial Comments: General: The patient is awake and alert, in no distress Eye: +3 mm pupils are equal, round and reactive to light, extra-ocular movements are intact. No nystagmus. There is normal conjunctiva bilaterally. No signs of icterus. Ears, nose, mouth and throat: There are moist mucous membranes and no oral lesions. Neck: The neck is supple, there is no tenderness or JVD. Cardiovascular: There is a regular rate and rhythm. No murmur, rub or gallop is appreciated. Respiratory: Lungs are clear to auscultation, respirations are non-labored, breath sounds are equal. No wheezes, stridor, rales, or rhonchi. Gastrointestinal: Soft, non-distended, non-tender abdomen without masses or organomegaly noted. There is no rebound or guarding present. Musculoskeletal: Normal ROM, no tenderness. Strength 5/5. Sensation intact. Radial pulses equal bilaterally 2+. Neurological: A&O x 3. CN II-XII intact grossly, There are no obvious motor or sensory deficits. Coordination appears grossly intact. Speech is normal. Skin: Skin is warm and dry and no rashes or lesions are noted. No appreciated increased size of LE, no edema or calf pain. Psychiatric: Cooperative, appropriate mood & affect, normal judgment. Limitations: no limitations Course Vital Signs 07/30/20 07/30/20 08:40 10:29 Temperature 99.4 F 98.9 F Pulse Rate 80 74 Respiratory 20 18 Rate Blood Pressure 132/98 128/87 O2 Sat by Pulse 100 98 Oximetry Medical Decision Making - Medical Decision Making EKG no acute changes. Dimer (-). Troponin (-) No evidence supportive of a myocarditis. Patient has obvious URI symptoms. Patient CXR clear at this time I feel she is stable for discharge with PCP f/u. Recommended quarantining as she may have covid 19. Test pending. - Lab Data Result diagrams: 07/30/20 09:17 07/30/20 09:17 Lab Results 07/30/20 07/30/20 07/30/20 Range/Units 09:17 09:17 09:17 WBC 9.8 (3.8-10.6) k/uL RBC 4.66 (3.80-5.40) m/uL Hgb 13.8 (11.4-16.0) gm/dL Hct 40.3 (34.0-46.0) % MCV 86.5 (80.0-100.0) fL MCH 29.7 (25.0-35.0) pg MCHC 34.3 (31.0-37.0) g/dL RDW 12.4 (11.5-15.5) % Plt Count 379 (150-450) k/uL MPV 6.3 Neutrophils % 58 % Lymphocytes % 33 % Monocytes % 4 % Eosinophils % 3 % Basophils % 1 % Neutrophils # 5.7 (1.3-7.7) k/uL Lymphocytes # 3.3 (1.0-4.8) k/uL Monocytes # 0.4 (0-1.0) k/uL Eosinophils # 0.3 (0-0.7) k/uL Basophils # 0.1 (0-0.2) k/uL D-Dimer <0.17 (<0.60) mg/L FEU Sodium 139 (137-145) mmol/L Potassium 4.0 (3.5-5.1) mmol/L Chloride 104 (98-107) mmol/L Carbon Dioxide 28 (22-30) mmol/L Anion Gap 7 mmol/L BUN 14 (7-17) mg/dL Creatinine 0.77 (0.52-1.04) mg/dL Est GFR (CKD-EPI)AfAm >90 (>60 ml/min/1.73 sqM) Est GFR (CKD-EPI)NonAf >90 (>60 ml/min/1.73 sqM) Glucose 87 (74-99) mg/dL Calcium 9.9 (8.4-10.2) mg/dL Total Bilirubin 0.3 (0.2-1.3) mg/dL AST 18 (14-36) U/L ALT 13 (4-34) U/L Alkaline Phosphatase 73 (38-126) U/L Troponin I (0.000-0.034) ng/mL Total Protein 7.2 (6.3-8.2) g/dL Albumin 4.0 (3.5-5.0) g/dL Urine Color Urine Appearance (Clear) Urine pH (5.0-8.0) Ur Specific [place] (1.001-1.035) Urine Protein (Negative) Urine Glucose (UA) (Negative) Urine Ketones (Negative) Urine Blood (Negative) Urine Nitrite (Negative) Urine Bilirubin (Negative) Urine Urobilinogen (<2.0) mg/dL Ur Leukocyte Esterase (Negative) Urine HCG, Qual (Not Detectd) 07/30/20 07/30/20 07/30/20 Range/Units 09:17 09:35 09:35 WBC (3.8-10.6) k/uL RBC (3.80-5.40) m/uL Hgb (11.4-16.0) gm/dL Hct (34.0-46.0) % MCV (80.0-100.0) fL MCH (25.0-35.0) pg MCHC (31.0-37.0) g/dL RDW (11.5-15.5) % Plt Count (150-450) k/uL MPV Neutrophils % % Lymphocytes % % Monocytes % % Eosinophils % % Basophils % % Neutrophils # (1.3-7.7) k/uL Lymphocytes # (1.0-4.8) k/uL Monocytes # (0-1.0) k/uL Eosinophils # (0-0.7) k/uL Basophils # (0-0.2) k/uL D-Dimer (<0.60) mg/L FEU Sodium (137-145) mmol/L Potassium (3.5-5.1) mmol/L Chloride (98-107) mmol/L Carbon Dioxide (22-30) mmol/L Anion Gap mmol/L BUN (7-17) mg/dL Creatinine (0.52-1.04) mg/dL Est GFR (CKD-EPI)AfAm (>60 ml/min/1.73 sqM) Est GFR (CKD-EPI)NonAf (>60 ml/min/1.73 sqM) Glucose (74-99) mg/dL Calcium (8.4-10.2) mg/dL Total Bilirubin (0.2-1.3) mg/dL AST (14-36) U/L ALT (4-34) U/L Alkaline Phosphatase (38-126) U/L Troponin I <0.012 (0.000-0.034) ng/mL Total Protein (6.3-8.2) g/dL Albumin (3.5-5.0) g/dL Urine Color Light Yellow Urine Appearance Clear (Clear) Urine pH 8.0 (5.0-8.0) Ur Specific [place] 1.016 (1.001-1.035) Urine Protein Negative (Negative) Urine Glucose (UA) Negative (Negative) Urine Ketones Negative (Negative) Urine Blood Negative (Negative) Urine Nitrite Negative (Negative) Urine Bilirubin Negative (Negative) Urine Urobilinogen <2.0 (<2.0) mg/dL Ur Leukocyte Esterase Negative (Negative) Urine HCG, Qual Not Detected (Not Detectd) Disposition Clinical Impression: URI (upper respiratory infection) Disposition: HOME SELF-CARE Condition: Good Instructions (If sedation given, give patient instructions): Upper Respiratory Infection (ED) Additional Instructions: Please use medication as discussed. Please follow-up with family doctor in the next 2 days. Will call with legionella and covid results if positive. Please return to emergency room if the symptoms increase or worsen or for any other concerns. Is patient prescribed a controlled substance at d/c from ED?: No Referrals: Kimani Turcios MD [Primary Care Provider] - 1-2 days Time of Disposition: 09:59
[2020-07-30 09:38] LABS: ALT 13 U/L (4-34); AST 18 U/L (14-36); African American GFR (CKD) >90 (>60 ml/min/1.73 sqM); Alkaline Phosphatase 73 U/L (38-126); Anion Gap 7 mmol/L; Blood Urea Nitrogen 14 mg/dL (7-17); Calcium 9.9 mg/dL (8.4-10.2); Carbon Dioxide 28 mmol/L (22-30); Chloride 104 mmol/L (98-107); Glucose 87 mg/dL (74-99); Non-African American GFR(CKD) >90 (>60 ml/min/1.73 sqM); Sodium 139 mmol/L (137-145); Total Bilirubin 0.3 mg/dL (0.2-1.3); Total Protein 7.2 g/dL (6.3-8.2)
[2020-07-30 09:45] LABS: Appearance,Urine Clear (Clear); Bilirubin,Urine Negative (Negative); Blood,Urine Negative (Negative); Color,Urine Light Yellow; Glucose,Urine (UA) Negative (Negative); Ketones,Urine Negative (Negative); Leukocyte Esterase,Urine Negative (Negative); Nitrite,Urine Negative (Negative); Protein,Urine Negative (Negative); Specific Gravity,Urine 1.016 (1.001-1.035); Urobilinogen,Urine <2.0 mg/dL (<2.0)
--- NOTE | 2020-07-30 09:54 | XR ---
EXAMINATION TYPE: XR chest 2V DATE OF EXAM: 07/30/2020 COMPARISON: 07/03/2019 HISTORY: 25-year-old female with cough and chest pain TECHNIQUE: PA and lateral views FINDINGS: The cardiomediastinal silhouette, aorta, and pulmonary vasculature are within normal limits. Lungs an d pleural spaces are clear. IMPRESSION: No acute cardiopulmonary process.
[2020-07-30 10:30] VITALS: BP 128/87; PULSE 74; RESP 18; TEMP 98.9
== END 2020-07-30 10:29 | disposition home or self-care (01) ==
LOC: EC 08:31
DX: J06.9 Acute upper respiratory infection, unspecified (principal); Z20.828 Contact with and (suspected) exposure to other viral communicable diseases; Z79.899 Other long term (current) drug therapy; Z88.8 Allergy status to other drugs, medicaments and biological substances; Z91.040 Latex allergy status; Z88.2 Allergy status to sulfonamides
CPT/HCPCS: 36415; 93005; 85379; 80053; 87449; 84484; 85025; 81003; 81025; 71046; 99284; U0003

== ENCOUNTER 2020-11-29 07:48 | Day surgery (SDC) | payer BC ==
[2020-11-25 09:09] VITALS: BMI 34.7
[~2020-11-29 07:48] MED LIST changes: -DEXAMETHASONE SOD PHOSPHATE 10 MG/ML 1 ML VIAL IV ONE; -HYDROmorphone 0.5 MG/0.5 ML SYRINGE IVP PRN; -LIDOCAINE 1% 20 ML VIAL (10MG/ML) FOR IV START INTRADERMA PRN; -MIDAZOLAM 2 MG/2 ML VIAL IV PRN; -ONDANSETRON 4 MG/2 ML VIAL IVP ONE; -Pre Op ABX Message 1 EACH MISC MISCELLANE ONE; -SCOPOLAMINE 1.5MG/72HR PATCH TRANSDERM ONE
[2020-11-29 09:03] VITALS: RESP 16; TEMP 98.4
[2020-11-29] MEDS ORDERED: PROPOFOL 10 MG/ML 20 ML VIAL IV ONE (09:45)
[2020-11-29] MEDS ORDERED: MIDAZOLAM 2 MG/2 ML VIAL ONE (09:45)
--- NOTE | 2020-11-29 10:13 | P.PCN ---
Date of Procedure: 11/29/20 Description of Procedure: BRIEF HISTORY: Patient is a 25-year-old female presented for outpatient colonoscopy for evaluation of diarrhea. She reports abdominal cramping and diarrhea and had computed tomography scan at outside hospital. She reports to 3 soft formed bowel movements daily. No prior colonoscopy. PROCEDURE PERFORMED: Colonoscopy with biopsy. PREOPERATIVE DIAGNOSIS: Diarrhea, altered bowel. ESTIMATED BLOOD LOSS: Minimal. IV sedation per Anesthesia. PROCEDURE: After informed consent was obtained, the patient, was brought into the endoscopy unit. IV sedation was administered by Anesthesia under continuous monitoring. Digital rectal examination was normal. Initially the Olympus CF-190 flexible video colonoscope was then inserted in the rectum, gradually advanced into the cecum without any difficulty. Careful examination was performed as the scope was gradually being withdrawn. Ileocecal valve and the appendiceal orifice were visualized and appeared normal. Prep was excellent. Mucosa of the cecum, ascending colon, transverse colon, descending colon, sigmoid colon, and rectum appeared normal, and a normal-appearing terminal ileum. Random biopsies taken of the terminal ileum, right colon, transverse colon, left colon and rectum. Only a small amount of erythema in the distal rectum just before the anal verge likely prep related. Retroflexion was performed in the rectum and no lesions were seen. The patient tolerated the procedure well. IMPRESSION: Normal-appearing colon from rectum to cecum and normal-appearing terminal ileum, with random biopsies taken of the terminal ileum, right colon, transverse colon, left colon and rectum. Small amount of erythema just proximal to the anal verge likely prep related. RECOMMENDATIONS: Findings of this examination were discussed with the patient .and her family. Okay to resume diet. Okay to resume medications. Await pathology from biopsies. Follow up in the GI clinic in the next 1-2 weeks for results of biopsies and further management.
[2020-11-29 10:34] VITALS: BP 127/71; PULSE 71
== END 2020-11-29 10:56 | disposition home or self-care (01) ==
LOC: ORWHC2ENDO 07:48
PROVIDERS: ATTEND Internal Medicine
DX: K62.89 Other specified diseases of anus and rectum (principal); J45.909 Unspecified asthma, uncomplicated; K21.9 Gastro-esophageal reflux disease without esophagitis; Z79.899 Other long term (current) drug therapy; Z88.2 Allergy status to sulfonamides; Z88.8 Allergy status to other drugs, medicaments and biological substances; Z91.040 Latex allergy status
CPT/HCPCS: 81025; 88305; 45380; J2250; J2704

== ENCOUNTER → 2022-10-14 | Outpatient (CLI) | payer BC, OTHER ==
--- NOTE | 2022-10-15 10:42 | MR ---
EXAMINATION TYPE: MR brain wo/w con DATE OF EXAM: 10/14/2022 2:32 PM CLINICAL INDICATION:Female, 27 years old with history of H46.03, G44.219; Headaches, papillitis both eyes. COMPARISON: None TECHNIQUE: Multi planar, multi sequence imaging was performed through the brain including: T1, T2, In version recovery, susceptibility weighted imaging and gradient echo imaging and Diffusion weighted im aging. The patient was then given intravenous contrast and multi planar, T1 fat-saturation images wer e obtained. IV Contrast: 9 cc Gadavist FINDINGS: The globes are intact. The orbits are intact. No evidence of inflammation within the intrac onal or extraconal fat. The optic nerves and optic chiasm appear symmetric and within normal limits. There is a left frontal lobe developmental venous anomaly. The katz-white junctions, ventricular system, basal cisterns appear unremarkable. Diffusion-weighted imaging shows no evidence of restricted diffusion to suggest acute/subacute infarct. Intracranial art erial flow voids are maintained. Midline structures show no abnormality. The susceptibility weighted images do not reveal any evidence for micro-hemorrhage. After administration of gadolinium, no abnormal enhancement is seen. The bone marrow signal is within normal limits. Paranasal sinuses and mastoid air cells: Mild scattered paranasal sinus disease. Visualized orbits: Orbital contents are intact. IMPRESSION: 1. Globes, orbits and optic nerves appear within normal limits. 2. No evidence of intracranial mass, acute/subacute infarct, or abnormal enhancement. 3. Left frontal lobe developmental venous anomaly.
== END | disposition home or self-care (01) ==
LOC: RADMRIMAIN 13:22
PROVIDERS: ATTEND Ophthalmology
DX: H46.03 Optic papillitis, bilateral (principal); G44.219 Episodic tension-type headache, not intractable
CPT/HCPCS: 70553; A9585

== ENCOUNTER 2023-12-15 23:22 | Emergency (ER) | payer BC, OTHER ==
--- NOTE | 2023-12-16 00:17 | ED ---
General Adult HPI - General Chief complaint: Skin/Abscess/Foreign Body Stated complaint: Possible Allergic reaction Time Seen by Provider: 12/16/23 00:00 Source: patient Mode of arrival: ambulatory Limitations: no limitations - History of Present Illness Initial comments: 28-year-old female presenting to the ED with a chief complaint of rash. Patient states today acute onset of rash for starting on her left upper extremity however since onset earlier tonight at around 7 states that has spread to her other upper extremity, her chest, and her back. Patient denies any new soaps, lotions, laundry detergents, foods, medication use, supplements. States is unsure what may have triggered this. Denies dyspnea. No chest pain. No fever or chills. No other complaints at this time. - Related Data Home Medications Medication Instructions Recorded Confirmed Omeprazole 40 mg PO HS 04/10/20 06/13/23 Albuterol Inhaler [Ventolin Hfa 2 puff INHALATION RT-Q4H PRN 11/25/20 06/13/23 Inhaler] Ethinyl Estradiol/Drospirenone 1 tab PO HS 11/25/20 06/13/23 [Claribel 28 Tablet] Venlafaxine HCl [Effexor XR] 75 mg PO HS 11/03/22 06/13/23 busPIRone HCl [Buspar] 5 mg PO BID 11/03/22 06/13/23 Budesonide-Formot 160-4.5 Mcg 2 puff INHALATION RT-BID 06/13/23 06/13/23 [Symbicort 160-4.5 Mcg Inhaler] Furosemide [Lasix] 20 mg PO DAILY 06/13/23 06/13/23 Montelukast [Singulair] 10 mg PO DAILY 06/13/23 06/13/23 Previous Rx's Medication Instructions Recorded Ketorolac [Toradol] 10 mg PO Q8HR #15 tab 06/13/23 Allergies Allergy/AdvReac Type Severity Reaction Status Date / Time dexamethasone Allergy Swelling Verified 12/15/23 23:30 latex Allergy Rash/Hives Verified 12/15/23 23:30 Sulfa (Sulfonamide Allergy Swelling Verified 12/15/23 23:30 Antibiotics) Review of Systems ROS Statement: Those systems with pertinent positive or pertinent negative responses have been documented in the HPI. ROS Other: All systems not noted in ROS Statement are negative. Past Medical History Past Medical History: Asthma, GERD/Reflux Additional Past Medical History / Comment(s): hx of herpes, referred by Dr Mendez for LP due to increased pressure in eyes, has had headaches as well. History of Any Multi-Drug Resistant Organisms: None Reported Past Surgical History: No Surgical Hx Reported Additional Past Surgical History / Comment(s): IUD removal, epicotomy ( growth on gum line ) Past Anesthesia/Blood Transfusion Reactions: No Reported Reaction Past Psychological History: Anxiety, Depression Smoking Status: Never smoker Past Alcohol Use History: None Reported Past Drug Use History: Marijuana - Past Family History Mother Family Medical History: Diabetes Mellitus Father Family Medical History: Diabetes Mellitus General Exam Limitations: no limitations General appearance: alert, in no apparent distress Eye exam: Present: normal appearance ENT exam: Present: normal oropharynx, other (No significant oropharyngeal swelling. No significant facial swelling.) Neck exam: Present: normal inspection Respiratory exam: Present: normal lung sounds bilaterally Cardiovascular Exam: Present: regular rate, normal rhythm GI/Abdominal exam: Present: soft, normal bowel sounds. Absent: distended, tenderness, guarding, rebound, rigid Neurological exam: Present: alert, oriented X3 Skin exam: Present: warm, dry, other (Patient has a maculopapular rash on bilateral upper extremities, upper chest wall, and upper back which blanches with pressure.) Course Vital Signs 12/15/23 23:27 Temperature 97.9 F Pulse Rate 93 Respiratory 20 Rate Blood Pressure 160/69 O2 Sat by Pulse 98 Oximetry Medical Decision Making - Medical Decision Making Was pt. sent in by a medical professional or institution (, PA, PROJECT GEOPHYSICIST, urgent care, hospital, or fpc...) When possible be specific @ -No Did you speak to anyone other than the patient for history (EMS, parent, family, police, friend...)? What history was obtained from this source @ -No Did you review nursing and triage notes (agree or disagree)? Why? @ -I reviewed and agree with nursing and triage notes Were old charts reviewed (outside hosp., previous admission, EMS record, old EKG, old radiological studies, urgent care reports/EKG's, fpc records)? Report findings @ -No old charts were reviewed Differential Diagnosis (chest pain, altered mental status, abdominal pain women, abdominal pain men, vaginal bleeding, weakness, fever, dyspnea, syncope, headache, dizziness, GI bleed, back pain, seizure, CVA, palpatations, mental health, musculoskeletal)? @ -Anaphylaxis, atopic dermatitis, psoriasis, shingles, SJS, TEN. This not meant to be an all-inclusive list. EKG interpreted by me (3pts min.). @ -None X-rays interpreted by me (1pt min.). @ -None done CT interpreted by me (1pt min.). @ -None done U/S interpreted by me (1pt. min.). @ -None done What testing was considered but not performed or refused? (CT, X-rays, U/S, labs)? Why? @ -None What meds were considered but not given or refused? Why? @ -None Did you discuss the management of the patient with other professionals (professionals i.e. , PA, PROJECT GEOPHYSICIST, lab, RT, psych nurse, social insurance specialist, bisque kiln placer, teacher, banking services officer, piano case and bench assembler)? Give summary @ -No Was smoking cessation discussed for >3mins.? @ -No Was critical care preformed (if so, how long)? @ -No Were there social determinants of health that impacted care today? How? (Homelessness, low income, unemployed, alcoholism, drug addiction, transportation, low edu. Level, literacy, decrease access to med. care, penitentiary, rehab)? @ -No Was there de-escalation of care discussed even if they declined (Discuss DNR or withdrawal of care, Hospice)? DNR status @ -No What co-morbidities impacted this encounter? (DM, HTN, Smoking, COPD, CAD, Cancer, CVA, ARF, Chemo, Hep., AIDS, mental health diagnosis, sleep apnea, morbid obesity)? @ -None Was patient admitted / discharged? Hospital course, mention meds given and route, prescriptions, significant lab abnormalities, going to OR and other pertinent info. @ -Discharge 28-year-old female presenting to the ED with acute onset rash starting approximately 7 PM today for starting on the left upper extremity but has now spread to her right upper extremity, upper chest, and upper back. On examination rash appears maculopapular in nature which blanches with pressure. There is no significant oropharyngeal or facial swelling. No stridor. Patient tolerating secretions. No evidence of respiratory distress on examination. Patient provided Solu-Medrol here. Also provided Pepcid and Benadryl. She did note allergy to dexamethasone however reports that she usually takes prednisone for her asthma exacerbations with no difficulties. Patient was monitored for period of time after medication administration with no adverse effects and discharged home in stable condition. Advise close follow-up with her PCP. Discussed return precautions with patient and family who verbalized agreement. Undiagnosed new problem with uncertain prognosis? @ -No Drug Therapy requiring intensive monitoring for toxicity (Heparin, Nitro, Insulin, Cardizem)? @ -No Were any procedures done? @ -No Diagnosis/symptom? @ -Rash Acute, or Chronic, or Acute on Chronic? @ -Acute Uncomplicated (without systemic symptoms) or Complicated (systemic symptoms)? @ -Uncomplicated Side effects of treatment? @ -No Exacerbation, Progression, or Severe Exacerbation? @ -No Poses a threat to life or bodily function? How? (Chest pain, USA, CT, pneumonia, PE, COPD, DKA, ARF, appy, cholecystitis, CVA, Diverticulitis, Homicidal, Suicidal, threat to staff... and all critical care pts) @ -No Disposition Clinical Impression: Rash Disposition: HOME SELF-CARE Condition: Good Instructions (If sedation given, give patient instructions): Urticaria (ED), Anaphylaxis (ED), General Allergic Reaction (ED) Additional Instructions: Please return to the Emergency Department if symptoms worsen or any other concerns. Please follow-up with your primary care provider. Is patient prescribed a controlled substance at d/c from ED?: No Referrals: Kimani Turcios MD [Primary Care Provider] - 1-2 days Time of Disposition: 01:25
[2023-12-16] MEDS: FAMOTIDINE 20 MG TAB PO STA (00:36)
[2023-12-16] MEDS: diphenhydrAMINE 50 MG/ML 1 ML VIAL IM STA (00:37)
[2023-12-16] MEDS: methylPREDNISolone SOD SUCCI 125 MG/2 ML VIAL IM ONE (00:37)
[2023-12-16 02:11] VITALS: BP 140/95; PULSE 72; RESP 16; TEMP 98.1
== END 2023-12-16 01:36 | disposition home or self-care (01) ==
LOC: EC 23:22
DX: R21 Rash and other nonspecific skin eruption (principal); F12.90 Cannabis use, unspecified, uncomplicated; Z91.040 Latex allergy status; Z88.8 Allergy status to other drugs, medicaments and biological substances; Z88.2 Allergy status to sulfonamides
CPT/HCPCS: 96372; 99282

== ENCOUNTER → 2024-01-21 | Outpatient (CLI) | payer BC, OTHER ==
--- NOTE | 2024-01-21 19:14 | CT ---
EXAMINATION TYPE: CT sinus wo con DATE OF EXAM: 01/21/2024 COMPARISON: None HISTORY: Chronic sinusitis CT DLP: 468 mGycm. Automated Exposure Control for Dose Reduction was Utilized. TECHNIQUE: CT scan of the sinuses is performed without contrast, axial images are obtained, coronal r eformatted images are also reviewed. FINDINGS: There is mild mucosal thickening in the maxillary sinuses. There are no air-fluid levels to suggest a cute sinusitis throughout the paranasal sinuses which are well aerated. The ostiomeatal complexes are patent bilaterally. The nasal cavity is intact. There are no osseous abnormalities. The intraorbital contents appear normal and symmetric. The mastoid air cells and middle ear cavities are well aerated. IMPRESSION: Mild chronic inflammatory changes in the maxillary sinuses with no other significant amount is seen.
== END | disposition home or self-care (01) ==
LOC: RADCTMAIN 18:23
PROVIDERS: ATTEND Otolaryngology
DX: J34.89 Other specified disorders of nose and nasal sinuses (principal); J32.0 Chronic maxillary sinusitis
CPT/HCPCS: 70486

== ENCOUNTER 2024-07-14 08:05 | Emergency (ER) | payer BC, OTHER ==
[2024-07-14 08:15] VITALS: RESP 18
[2024-07-14] MEDS: predniSONE 50 MG TAB PO STA (08:45)
--- NOTE | 2024-07-14 08:45 | ED ---
General Adult HPI - General Chief complaint: Skin/Abscess/Foreign Body Stated complaint: rash Time Seen by Provider: 07/14/24 08:19 Source: patient, RN notes reviewed Mode of arrival: ambulatory Limitations: no limitations - History of Present Illness Initial comments: 29-year-old female presents emerged part complaint of a rash. Patient states she woke up with a rash this morning states is very itchy small bumps throughout her chest, arms. States hCG does note that she has bad allergies but has not taken them for him. Patient denies any recent sore throat no fevers chills no new products. She denies any difficulty swallowing. - Related Data Home Medications Medication Instructions Recorded Confirmed Omeprazole 40 mg PO HS 04/10/20 06/13/23 Albuterol Inhaler [Ventolin Hfa 2 puff INHALATION RT-Q4H PRN 11/25/20 06/13/23 Inhaler] Ethinyl Estradiol/Drospirenone 1 tab PO HS 11/25/20 06/13/23 [Claribel 28 Tablet] Venlafaxine HCl [Effexor XR] 75 mg PO HS 11/03/22 06/13/23 busPIRone HCl [Buspar] 5 mg PO BID 11/03/22 06/13/23 Budesonide-Formot 160-4.5 Mcg 2 puff INHALATION RT-BID 06/13/23 06/13/23 [Symbicort 160-4.5 Mcg Inhaler] Furosemide [Lasix] 20 mg PO DAILY 06/13/23 06/13/23 Montelukast [Singulair] 10 mg PO DAILY 06/13/23 06/13/23 Previous Rx's Medication Instructions Recorded Ketorolac [Toradol] 10 mg PO Q8HR #15 tab 06/13/23 predniSONE 50 mg PO DAILY #4 tab 07/14/24 Allergies Allergy/AdvReac Type Severity Reaction Status Date / Time dexamethasone Allergy Swelling Verified 07/14/24 08:13 latex Allergy Rash/Hives Verified 07/14/24 08:13 Sulfa (Sulfonamide Allergy Swelling Verified 07/14/24 08:13 Antibiotics) Review of Systems ROS Statement: Those systems with pertinent positive or pertinent negative responses have been documented in the HPI. ROS Other: All systems not noted in ROS Statement are negative. Past Medical History Past Medical History: Asthma, GERD/Reflux Additional Past Medical History / Comment(s): hx of herpes, referred by Dr Menedz for LP due to increased pressure in eyes, has had headaches as well. History of Any Multi-Drug Resistant Organisms: None Reported Past Surgical History: No Surgical Hx Reported Additional Past Surgical History / Comment(s): IUD removal, epicotomy ( growth on gum line ) Past Anesthesia/Blood Transfusion Reactions: No Reported Reaction Past Psychological History: Anxiety, Depression Smoking Status: Never smoker Past Alcohol Use History: Occasional Past Drug Use History: Marijuana - Past Family History Mother Family Medical History: Diabetes Mellitus Father Family Medical History: Diabetes Mellitus General Exam Limitations: no limitations General appearance: alert, in no apparent distress Head exam: Present: atraumatic, normocephalic, normal inspection Eye exam: Present: normal appearance, PERRL, EOMI. Absent: scleral icterus, conjunctival injection, periorbital swelling ENT exam: Present: normal exam, normal oropharynx, mucous membranes moist Neck exam: Present: normal inspection, full ROM. Absent: tenderness, meningismus, lymphadenopathy Respiratory exam: Present: normal lung sounds bilaterally. Absent: respiratory distress, wheezes, rales, rhonchi, stridor Cardiovascular Exam: Present: regular rate, normal rhythm, normal heart sounds. Absent: systolic murmur, diastolic murmur, rubs, gallop, clicks Skin exam: Present: warm, dry, intact, normal color, rash (They raised erythematous papular rash extremities, chest and torso) Course Vital Signs 07/14/24 08:13 Temperature 97.6 F Pulse Rate 73 Respiratory 18 Rate Blood Pressure 147/95 O2 Sat by Pulse 99 Oximetry Medical Decision Making - Medical Decision Making Was pt. sent in by a medical professional or institution (, PA, HEEL GUMMER, urgent care, hospital, or assisted...) When possible be specific @ -No Did you speak to anyone other than the patient for history (EMS, parent, family, police, friend...)? What history was obtained from this source @ -No Did you review nursing and triage notes (agree or disagree)? Why? @ -I reviewed and agree with nursing and triage notes Were old charts reviewed (outside hosp., previous admission, EMS record, old EKG, old radiological studies, urgent care reports/EKG's, assisted records)? Report findings @ -No old charts were reviewed Differential Diagnosis (chest pain, altered mental status, abdominal pain women, abdominal pain men, vaginal bleeding, weakness, fever, dyspnea, syncope, headache, dizziness, GI bleed, back pain, seizure, CVA, palpatations, mental health, musculoskeletal)? @ -Contact dermatitis, allergic reaction, medication reaction EKG interpreted by me (3pts min.). @ -None X-rays interpreted by me (1pt min.). @ -None done CT interpreted by me (1pt min.). @ -None done U/S interpreted by me (1pt. min.). @ -None done What testing was considered but not performed or refused? (CT, X-rays, U/S, labs)? Why? @ -None What meds were considered but not given or refused? Why? @ -None Did you discuss the management of the patient with other professionals (professionals i.e. , PA, HEEL GUMMER, lab, RT, psych nurse, social economist, supplier quality engineering manager, teacher, banking services officer, case managers)? Give summary @ -No Was smoking cessation discussed for >3mins.? @ -No Was critical care preformed (if so, how long)? @ -No Were there social determinants of health that impacted care today? How? (Homelessness, low income, unemployed, alcoholism, drug addiction, transportation, low edu. Level, literacy, decrease access to med. care, care home, rehab)? @ -No Was there de-escalation of care discussed even if they declined (Discuss DNR or withdrawal of care, Hospice)? DNR status @ -No What co-morbidities impacted this encounter? (DM, HTN, Smoking, COPD, CAD, Cancer, CVA, ARF, Chemo, Hep., AIDS, mental health diagnosis, sleep apnea, morbid obesity)? @ -None Was patient admitted / discharged? Hospital course, mention meds given and route, prescriptions, significant lab abnormalities, going to OR and other pertinent info. @ -Discharge patient has allergic dermatitis. Patient discharged with steroids will continue antihistamines. Undiagnosed new problem with uncertain prognosis? @ -No Drug Therapy requiring intensive monitoring for toxicity (Heparin, Nitro, Insulin, Cardizem)? @ -No Were any procedures done? @ -No Diagnosis/symptom? @ -Allergic dermatitis Acute, or Chronic, or Acute on Chronic? @ -Acute Uncomplicated (without systemic symptoms) or Complicated (systemic symptoms)? @ -Uncomplicated Side effects of treatment? @ -No Exacerbation, Progression, or Severe Exacerbation? @ -No Poses a threat to life or bodily function? How? (Chest pain, [place], [place], pneumonia, PE, COPD, DKA, ARF, appy, cholecystitis, CVA, Diverticulitis, Homicidal, Suicidal, threat to staff... and all critical care pts) @ -No Disposition Clinical Impression: Allergic dermatitis Disposition: HOME SELF-CARE Condition: Stable Instructions (If sedation given, give patient instructions): Dermatitis (ED) Additional Instructions: Please return to the Emergency Department if symptoms worsen or any other concerns. Prescriptions: predniSONE 50 mg PO DAILY #4 tab Is patient prescribed a controlled substance at d/c from ED?: No Referrals: Kimani Turcios MD [Primary Care Provider] - 1-2 days Time of Disposition: 08:44
[2024-07-14 08:52] VITALS: BP 139/90; PULSE 68; TEMP 98
== END 2024-07-14 08:51 | disposition home or self-care (01) ==
LOC: EC 08:05
CPT/HCPCS: 99282